=== PATIENT | female | born 1990 | race Caucasian/White ===

== ENCOUNTER 2018-02-05 09:56 | Day surgery (SDC) | payer OTHER, BC ==
[~2018-02-05] VITALS: Ht 162.6 cm; Wt 68.0 kg
[~2018-02-05 09:56] MED LIST: CLARITIN10 M3 PO
[2018-02-05 10:25] LABS: BASOPHIL (%) 0.6 % (0-1); EOSINOPHIL (%) 2.3 % (0-5); EOSINOPHIL COUNT 0.2 K/uL (0-0.3); HEMATOCRIT 36.7 % (36.0-46.0); HEMOGLOBIN 12.9 G/DL (11.9-15.5); IMMATURE GRANULOCYTE (%) 0.4 % (0.0-0.7); LYMPHOCYTE (%) 28.6 % (15-42); MCH 29.5 PG (29.0-34.0); MCHC 35.1 G/DL (30.0-36.0); MONOCYTE (%) 6.6 % (3-12); MONOCYTE COUNT 0.5 K/uL (0-0.8); NEUTROPHIL (%) 61.5 % (45-76); NEUTROPHIL COUNT 4.3 K/uL (1.8-6.4); PLATELET COUNT 263 K/uL (156-360); RBC DIS.WIDTH-CV 12.3 % (11.8-14.6); RBC DIS.WIDTH-SD 37.4 % (39-53); RED BLOOD COUNT 4.37 M/uL (3.80-5.20)
[2018-02-05 10:28] VITALS: BP 109/64
[2018-02-05 12:29] VITALS: BP 113/64
[2018-02-05 13:20] VITALS: BP 113/60
[2018-02-05 13:55] VITALS: BP 105/57
== END 2018-02-05 14:09 | disposition home or self-care (01) ==
LOC: SDC 09:56
PROVIDERS: Obstetrics & Gynecology
PROC: 10D17ZZ Extraction of Products of Conception, Retained, Via Natural or Artificial Opening (ICD-10-PCS; principal; 2018-02-05)
DX: O02.1 Missed abortion (principal); Z3A.09 9 weeks gestation of pregnancy
CPT/HCPCS: 85025; 86850; 86900; 86901; 88305; J1100; J2274; J2405; J3010